=== PATIENT | male | born 1960 | race Caucasian/White ===

== ENCOUNTER 2020-02-01 09:57 | Outpatient (CLI) | payer BC, SELFPAY ==
--- NOTE | 2020-02-01 10:00 | ECG_ITS ---
Measurements Intervals [place] Rate: 60 P: 22 MO: 164 QRS: 29 QRSD: 101 T: 48 QT: 394 QTc: 394 Interpretive Statements SINUS RHYTHM NORMAL ECG Electronically Signed On 02-01-2020 10:49:41 CDT by Teja Rodriguez D.O.
[2020-02-01 10:09] LABS: Basophils Absolute Auto 0.04 K/mm3 (0.00-0.10); Basophils Percent Auto 0.6 % (0.0-1.0); Eosinophils Absolute Auto 0.23 K/mm3 (0.02-0.50); Eosinophils Percent Auto 3.6 % (1.0-6.0); Hematocrit 47.6 % (40.0-54.0); Hemoglobin 15.9 g/dL (14.0-18.0); Immature Granulocyte Absolute 0.01 K/mm3 (0.00-0.00); Immature Granulocyte Percent A 0.2 % (0.0-0.0); Lymphocytes Absolute Auto 1.92 K/mm3 (1.10-4.50); Lymphocytes Percent Auto 30.1 % (18.0-42.0); Mean Corpuscular HGB Conc 33.4 g/dL (32.0-36.0); Mean Corpuscular Hemoglobin 29.8 pg (27.0-31.0); Mean Corpuscular Volume 89.1 fL (78.0-102.0); Mean Platelet Volume 9.9 fl (8.7-11.0); Monocytes Absolute Auto 0.62 K/mm3 (0.10-0.90); Monocytes Percent Auto 9.7 % (2.0-11.0); Neutrophils Absolute Auto 3.6 K/mm3 (1.7-7.2); Neutrophils Percent Auto 55.8 % (50.0-70.0); Platelet Count Result 204 K/mm3 (150-420); Red Blood Count 5.34 M/mm3 (4.70-6.10); Red Cell Distribution Width 12.4 % (11.6-14.4); White Blood Count 6.4 K/mm3 (4.8-10.8)
[2020-02-01 12:01] LABS: Alanine Aminotransferase 33 U/L (16-63); Albumin Level 3.8 g/dL (3.4-5.0); Alkaline Phosphatase 63 U/L (46-116); Anion Gap 11.4 mmol/L (7-16); Aspartate Amino Transferase 22 U/L (15-37); Bilirubin,Total 0.5 mg/dL (0.00-1.00); Blood Urea Nitrogen 12 mg/dL (7-18); Calcium 8.6 mg/dL (8.5-10.1); Carbon Dioxide 29 mmol/L (21-32); Chloride 102 mmol/L (98-108); Cholesterol 177 mg/dL (0-200); Estimated Glomerular Filt Rate > 60; Glucose 96 mg/dL (70-99); HDL Direct 40 mg/dL (40-60); LDL Cholesterol Calculated 112 mg/dL (<130); Osmolality Calculated 285 mOsm/kg (285-295); Potassium 4.4 mmol/L (3.5-5.1); Sodium 138 mmol/L (136-145); Total Protein 6.9 g/dL (6.4-8.2); Triglycerides 126 mg/dL (0-150)
== END 2020-02-01 09:58 | disposition home or self-care (01) ==
PROVIDERS: PCP Nurse Practitioner Family; Visit Provider Nurse Practitioner Family
DX: Z01.818 Encounter for other preprocedural examination (principal); Z68.28 Body mass index [BMI] 28.0-28.9, adult
CPT/HCPCS: 36415; 80053; 80061; 85025; 93005

== ENCOUNTER 2021-07-15 07:27 | Outpatient (CLI) | payer OTHER, SELFPAY ==
--- NOTE | ~2021-07-15 | US_ITS ---
EXAMINATION: US soft tissue UE LT DATE: 07/15/2021 08:16 INDICATION: Left wrist pain . Ganglion cyst. TECHNIQUE: Multiple grayscale and Doppler ultrasound images of the region of concern at the dorsal as pect of the wrist were obtained. COMPARISON: None FINDINGS: There is a 1.8 x 1.2 x 0.5 cm masslike region which appears contiguous with the scapholunate joint sp sean. There is a minimal amount of anechoic fluid between hypoechoic likely soft tissue. No evident in ternal vascular flow on color Doppler. Location appearance suggests a ganglion cyst with prominent sy novitis. Neoplasm would be considered significantly less likely. Normal-appearing extensor tendons wi thout tenosynovitis or lie along the medial and lateral margins of the mass. IMPRESSION: 1. 1.8 x 1.2 x 0.5 cm likely ganglion cyst with internal synovitis which appears to arise from the do rsal aspect of the scapholunate joint. Could consider pre and postcontrast MRI for more definitive de termination as clinically indicated. Reviewed, dictated and finalized at location A. OUROLOGIST IMPRESSION: 1. 1.8 x 1.2 x 0.5 cm likely ganglion cyst with internal synovitis which appear s to arise from the dorsal aspect of the scapholunate joint. Could consider pre and postcontrast MRI for more definitive determination as clinically indicated .
== END 2021-07-15 07:28 | disposition home or self-care (01) ==
LOC: CHSIMG 07:28
PROVIDERS: PCP Nurse Practitioner Family; Visit Provider Nurse Practitioner Family
DX: M25.532 Pain in left wrist (principal)
CPT/HCPCS: 76882

== ENCOUNTER 2021-08-25 14:09 | Outpatient (CLI) | payer OTHER, SELFPAY ==
--- NOTE | ~2021-08-25 | XR_ITS ---
EXAMINATION: XR chest 2V EXAM DATE: 08/25/2021 14:23 INDICATION: cough x 3wks, r/o pneumonia -pt frequent pneumonia . TECHNIQUE: Frontal and lateral projections of the chest obtained and reviewed. There is no prior saulo dy for comparison. FINDINGS: There is moderate amount of right-sided peripheral, small amount of left basilar airspace disease. Distribution and appearance could indicate COVID pneumonia, please clinically correlate. Oth er etiologies also possible. Cardiomediastinal silhouette is normal. There is no pneumothorax suspect ed. There are no pleural effusions. There are no osseous abnormalities identified. IMPRESSION: Moderate right, smaller left-sided airspace disease, appearance consistent with COVID pne umonia but other etiologies also possible. Reviewed, dictated and finalized at location A. D BANK WORKER IMPRESSION: Moderate right, smaller left-sided airspace disease, appearance con sistent with COVID pneumonia but other etiologies also possible.
== END 2021-08-25 14:10 | disposition home or self-care (01) ==
LOC: CHSIMG 14:12
PROVIDERS: PCP Nurse Practitioner Family; Visit Provider Nurse Practitioner Family
DX: R05.9 Cough, unspecified (principal); U07.1 COVID-19; R06.00 Dyspnea, unspecified
CPT/HCPCS: 71046

== ENCOUNTER 2022-07-12 10:54 | Outpatient (CLI) | payer OTHER, SELFPAY ==
--- NOTE | 2022-07-12 10:56 | ECG_ITS ---
Measurements Intervals [place] Rate: 63 P: 28 NC: 164 QRS: 32 QRSD: 100 T: 47 QT: 408 QTc: 419 Interpretive Statements SINUS RHYTHM EARLY PRECORDIAL R/S TRANSITION BASELINE WANDER- I, II BORDERLINE ECG COMPARED TO ECG 02/01/2020 10:18:20 NO SIGNIFICANT CHANGES Electronically Signed On 07-12-2022 11:39:43 METAL MINE INSPECTOR by Teja Rodriguez D.O.
[2022-07-12 11:22] LABS: Basophils Absolute Auto 0.03 K/mm3 (0.00-0.10); Basophils Percent Auto 0.5 % (0.0-1.0); Eosinophils Absolute Auto 0.22 K/mm3 (0.02-0.50); Eosinophils Percent Auto 3.6 % (1.0-6.0); Hematocrit 48.3 % (40.0-54.0); Hemoglobin 15.5 g/dL (14.0-18.0); Immature Granulocyte Absolute 0.02 K/mm3 (0.00-0.00); Immature Granulocyte Percent A 0.3 % (0.0-0.0); Lymphocytes Absolute Auto 2.18 K/mm3 (1.10-4.50); Lymphocytes Percent Auto 35.4 % (18.0-42.0); Mean Corpuscular HGB Conc 32.1 g/dL (32.0-36.0); Mean Corpuscular Hemoglobin 28.9 pg (27.0-31.0); Mean Corpuscular Volume 90.1 fL (78.0-102.0); Mean Platelet Volume 10.5 fl (8.7-11.0); Monocytes Absolute Auto 0.51 K/mm3 (0.10-0.90); Monocytes Percent Auto 8.3 % (2.0-11.0); Neutrophils Absolute Auto 3.2 K/mm3 (1.7-7.2); Neutrophils Percent Auto 51.9 % (50.0-70.0); Platelet Count Result 188 K/mm3 (150-420); Red Blood Count 5.36 M/mm3 (4.70-6.10); Red Cell Distribution Width 11.7 % (11.6-14.4); White Blood Count 6.2 K/mm3 (4.8-10.8)
[2022-07-12 12:35] LABS: Alanine Aminotransferase 58 U/L (16-63); Albumin Level 3.7 g/dL (3.4-5.0); Alkaline Phosphatase 55 U/L (46-116); Anion Gap 7 mmol/L (8-16); Aspartate Amino Transferase 33 U/L (15-37); Bilirubin,Total 0.4 mg/dL (0.00-1.00); Blood Urea Nitrogen 11 mg/dL (7-18); Calcium 8.3 mg/dL (8.5-10.1); Carbon Dioxide 31 mmol/L (21-32); Chloride 105 mmol/L (98-108); Estimated Glomerular Filt Rate > 60; Glucose 100 mg/dL (70-99); Osmolality Calculated 295 mOsm/kg (285-295); Potassium 4.1 mmol/L (3.5-5.1); Prostate Specific Antigen 0.7 ng/mL (< OR = 4.0); Sodium 143 mmol/L (136-145); Total Protein 6.9 g/dL (6.4-8.2)
[2022-07-12 12:36] LABS: CRP < 0.5 mg/dL (0.0-0.9)
== END 2022-07-12 10:55 | disposition home or self-care (01) ==
LOC: CHSCARD 10:56
PROVIDERS: PCP Nurse Practitioner Family; Visit Provider Nurse Practitioner Family
DX: R07.9 Chest pain, unspecified (principal); R35.0 Frequency of micturition
CPT/HCPCS: 36415; 80053; 84153; 85025; 86140; 93005

== ENCOUNTER 2022-07-19 08:35 | Outpatient (CLI) | payer OTHER, SELFPAY ==
--- NOTE | 2022-07-19 08:41 | EST_ITS ---
Patient Info Name: Adilson Short Age: 61 years : 1960 Gender: Male Ht: 70 in Wt: 230 lbs BSA: 2.30 m2 Technical Quality: Good Exam Date: 07/19/2022 9:47 AM Exam Location: [facility] Patient Status: Outpatient Admit Date: 07/19/2022 Any Known Allergies: PCN Staff Ordering Physician: Mary Contreras NP Attending Provider: Mary Contreras NP Exam Type: CA stress test treadmill w NM Study Info A nuclear stress test was performed. History/Risk Factors Hypertension: Yes Family History: Coronary Artery Disease Summary 1. 1. Negative Tray exercise stress test for ischemic ST changes by ECG criteria. 2. 2. Good functional capacity, achieving 9.5 METs of workload. 3. 3. Baseline hypertension with hypertensive response to exercise. 4. 4. Appropriate HR response to exercise. 5. 5. Appropriate HR recovery at 1 minute post exercise. 6. 6. Nuclear scan to follow and will be reported separately. Please correlate with it. Protocol: Manual Mode Stress ECG Details Stage: REST Duration (min): 1 min : 48 sec Álvarez: --- Speed (mph): 0.0 Grade (%): 0 HR (bpm): 72 SBP (mmHg): 147 DBP (mmHg): 87 METS: --- Stage: REST Duration (min): 21 min : 43 sec Álvarez: --- Speed (mph): 0.0 Grade (%): 0 HR (bpm): 83 SBP (mmHg): 147 DBP (mmHg): 87 METS: --- Stage: STAGE 1 Duration (min): 1 min : 0 sec Álvarez: --- Speed (mph): 1.7 Grade (%): 10 HR (bpm): 96 SBP (mmHg): 147 DBP (mmHg): 87 METS: --- Stage: STAGE 1 Duration (min): 2 min : 0 sec Álvarez: --- Speed (mph): 1.7 Grade (%): 10 HR (bpm): 102 SBP (mmHg): 147 DBP (mmHg): 87 METS: --- Stage: STAGE 1 Duration (min): 3 min : 0 sec Álvarez: --- Speed (mph): 1.7 Grade (%): 10 HR (bpm): 106 SBP (mmHg): 147 DBP (mmHg): 87 METS: --- Stage: STAGE 2 Duration (min): 1 min : 0 sec Álvarez: --- Speed (mph): 2.5 Grade (%): 12 HR (bpm): --- SBP (mmHg): 147 DBP (mmHg): 87 METS: --- Stage: STAGE 2 Duration (min): 2 min : 0 sec Álvarez: --- Speed (mph): 2.5 Grade (%): 12 HR (bpm): 124 SBP (mmHg): 147 DBP (mmHg): 87 METS: --- Stage: STAGE 2 Duration (min): 3 min : 0 sec Álvarez: --- Speed (mph): 2.5 Grade (%): 12 HR (bpm): 131 SBP (mmHg): 214 DBP (mmHg): 84 METS: --- Stage: STAGE 3 Duration (min): 1 min : 0 sec Álvarez: --- Speed (mph): 3.4 Grade (%): 14 HR (bpm): 141 SBP (mmHg): 214 DBP (mmHg): 84 METS: --- Stage: STAGE 3 Duration (min): 1 min : 40 sec Álvarez: --- Speed (mph): 2.8 Grade (%): 0 HR (bpm): 142 SBP (mmHg): 214 DBP (mmHg): 84 METS: --- Stage: RECOVERY Duration (min): 0 min : 19 sec Álvarez: --- Speed (mph): 0.0 Grade (%): 0 HR (bpm): 134 SBP (mmHg): 214 DBP (mmHg): 84 METS: ---
--- NOTE | 2022-07-19 16:36 | WPDCARIOSTRE ---
Nuclear Stress Test INDICATIONS Indications: Chest pain PROCEDURE Procedure Performed: Myocardial Perf Spect-Multi Procedure: Patient underwent a standard Tray exercise tress test and immediately was injected with 34.6 mCi of cardiolyte. Multiple tomographic images were obtained. These are of good quality. There is evidence of small size, mild intensity inferoseptal perfusion defect noted during stress imaging. A separate resting images were obtained after patient was injected with 10.6 mCi of cardiolyte. Multiple tomographic images were obtained. These are of good quality. There is evidence of small size, mild intensity inferoseptal perfusion defect noted during rest imaging. CONCLUSION Conclusion: 1. Myocardial perfusion imaging demonstrating a fixed small size, mild intensity inferoseptal perfusion defect suggestive of diaphragmatic attentuation artifact. 2. No evidence of reversible ischemia. 3. Left ventriculogram demonstrates normal measured ejection fraction of 67% with no wall motion abnormalities. 4. TID score is normal at 0.88.
== END 2022-07-19 08:36 | disposition home or self-care (01) ==
LOC: CHSIMG 08:37
PROVIDERS: PCP Nurse Practitioner Family; Visit Provider Nurse Practitioner Family
DX: R07.9 Chest pain, unspecified (principal)
CPT/HCPCS: 78452; 93017; A9502

== ENCOUNTER 2022-08-27 07:42 | Outpatient (CLI) | payer OTHER, SELFPAY ==
[2022-08-27 08:48] LABS: Cholesterol 180 mg/dL (0-200); HDL Direct 36 mg/dL (40-60); LDL Cholesterol Calculated 105 mg/dL (<130); Triglycerides 197 mg/dL (0-150)
== END 2022-08-27 07:43 | disposition home or self-care (01) ==
LOC: CHSLAB 07:43
PROVIDERS: PCP Nurse Practitioner Family; Visit Provider Internal Medicine Cardiovascular Disease
DX: I10 Essential (primary) hypertension (principal)
CPT/HCPCS: 36415; 80061